=== PATIENT | female | born 1960 | race Caucasian/White ===

== ENCOUNTER → 2019-03-05 12:46 | Outpatient (CLI) | payer OTHER, SELFPAY ==
--- NOTE | 2019-03-05 12:49 | DI.US.S_ITS ---
PROCEDURE: US PELVIC COMPLETE INDICATIONS: LOWER ABDOMINAL PAIN TECHNIQUE: Real-time scanning was performed of the pelvic organs, with image documentation. Additional endovaginal scanning was necessary due to incomplete visualization of the adnexal and endometrial structures by transabdominal scanning. COMPARISON: None. FINDINGS: Transabdominal scanning: Limited scanning through the kidneys shows no hydronephrosis. No pathologic free abdominal or pelvic fluid. Endovaginal scanning: Uterus: Uterus is normal in size at 7.0 x 7.5 x 8.7 cm, retroverted. The endometrium was not well visualized do to a large uterine fibroid, intramural, that measures up to 6.4 x 6.6 x 5.2 cm at the fundus. Ovaries: Not seen bilaterally despite both transabdominal and transvaginal scanning. IMPRESSION: Retroverted uterus which is moderately enlarged by a large single identified fibroid that measures up to 5.2 x 6.6 x 6.4 cm at the fundus. This obscures visualization of the endometrial lining. MR scanning could be utilized to allow visualization of that area of the uterus which is obscured by the large fibroid currently present. No adnexal pathology but the ovaries could not be located despite transabdominal and transvaginal scanning due to to overlying bowel gas and postmenopausal ovarian atrophy. Dictated by: Norman Donis M.D. on 03/05/2019 at 14:21 Approved by: Norman Donis M.D. on 03/05/2019 at 14:23
== END ==
PROVIDERS: Family Provider Family Medicine; PCP Family Medicine; Visit Provider Family Medicine
DX: N94.10 Unspecified dyspareunia (principal); D25.9 Leiomyoma of uterus, unspecified; N85.4 Malposition of uterus
CPT/HCPCS: 76830; 76856

== ENCOUNTER → 2019-09-10 15:03 | Outpatient (CLI) | payer OTHER, SELFPAY ==
--- NOTE | 2019-09-10 15:05 | DI.MG.S_ITS ---
BILATERAL DIGITAL SCREENING MAMMOGRAM 3D/2D WITH CAD: 09/10/2019 CLINICAL: Routine screening. Comparison is made to exams dated: 10/19/2016 mammogram - [facility], 10/03/2013 mammogram, and 06/24/2009 mammogram - [facility]. The tissue of both breasts is heterogeneously dense. This may lower the sensitivity of mammography. Current study was also evaluated with a Computer Aided Detection (CAD) system. No significant masses, calcifications, or other findings are seen in either breast. There has been no significant interval change. IMPRESSION: NEGATIVE There is no mammographic evidence of malignancy. A 1 year screening mammogram is recommended. This exam was interpreted at Station ID: [id number]. NOTE: For mammograms, a report in lay terms will be sent to the patient. Approximately 15% of breast malignancies will not be visualized mammographically. In the management of a palpable breast mass, a negative mammogram must not discourage biopsy of a clinically suspicious lesion. Electronically Signed By: Jordan jones/dannielle:09/10/2019 16:55:14 letter sent: Normal Exam ACR BI-RADS Category 1: Negative 3341F
== END ==
PROVIDERS: PCP Family Medicine; Visit Provider Family Medicine
DX: Z12.31 Encounter for screening mammogram for malignant neoplasm of breast (principal)
CPT/HCPCS: 77063; 77067

== ENCOUNTER → 2020-07-29 10:58 | Outpatient (CLI) | payer OTHER, SELFPAY ==
--- NOTE | 2020-07-29 11:03 | DI.RAD.S_ITS ---
PROCEDURE: XR ABDOMEN MIN 2V INDICATIONS: 1 month hx pain R side ribcage, chest, abdomen TECHNIQUE: 2 views of the abdomen were acquired. COMPARISON: None. FINDINGS: Surgical changes and devices: None. Bowel: No pneumoperitoneum. The bowel gas pattern is normal except for right and transverse colon moderate colonic obstipation. Soft tissues: No masses; visualized solid organ contours appear normal in size. No suspicious abdominal calcifications. Bones: No suspicious bony abnormalities. IMPRESSION: Moderate colonic obstipation involving the right colon and the transverse colon, no intestinal obstruction or perforation found. Dictated by: Norman Donis M.D. on 07/29/2020 at 12:01 Approved by: Norman Donis M.D. on 07/29/2020 at 12:02
--- NOTE | 2020-07-29 11:03 | DI.RAD.S_ITS ---
PROCEDURE: XR CHEST 2V INDICATIONS: 1 month hx pain R side ribcage, chest, abdomen TECHNIQUE: 2 views of the chest were acquired. COMPARISON: [facility], TERRY, XR RIBS RT 2V, 07/29/2020, 10:55. [facility], , MM SCREENING MAMMO BI, 09/10/2019, 15:19. [facility], TERRY, CHEST 1 VIEW, 08/17/2016, 22:05. FINDINGS: Surgical changes and devices: None. Lungs and pleura: Lungs are clear. No pleural effusions or pneumothorax. Mediastinum: Mediastinal contours are normal. Heart size is normal. Bones and chest wall: No suspicious bony abnormalities. Soft tissues appear unremarkable. IMPRESSION: Source of pain is not identified. Normal for age. Dictated by: Norman Donis M.D. on 07/29/2020 at 12:02 Approved by: Norman Donis M.D. on 07/29/2020 at 12:03
--- NOTE | 2020-07-29 11:03 | DI.RAD.S_ITS ---
PROCEDURE: XR RIBS RT 2V INDICATIONS: 1 month hx pain R side ribcage, chest, abdomen TECHNIQUE: 2 views of the right ribs were acquired. COMPARISON: None. FINDINGS: Surgical changes and devices: None. Bones and chest wall: No fractures or dislocations. No suspicious bony lesions. Overlying soft tissues appear unremarkable. Lungs and pleura: The visualized lung appears clear. No pleural effusions or pneumothorax are visible. IMPRESSION: No displaced rib fracture. No pleural effusion or pneumothorax. Dictated by: Wyatt Castellanos M.D. on 07/29/2020 at 11:35 Approved by: Wyatt Castellanos M.D. on 07/29/2020 at 11:36
== END ==
PROVIDERS: PCP Registered Nurse Diabetes Educator; Referring Provider Registered Nurse Diabetes Educator; Visit Provider Registered Nurse Diabetes Educator
DX: R07.81 Pleurodynia (principal); R07.9 Chest pain, unspecified; R10.9 Unspecified abdominal pain; K59.00 Constipation, unspecified
CPT/HCPCS: 71046; 71100; 74019

== ENCOUNTER → 2020-07-30 10:06 | Outpatient (CLI) | payer OTHER, SELFPAY ==
[2020-07-30 12:56] LABS: Add Manual Diff / Slide Review NO; Basophils Absolute Auto 0 /uL (0-100); Basophils Percent Auto 0.7 % (0-2); Eosinophils Absolute Auto 100 /uL (0-450); Eosinophils Percent Auto 2.1 % (2-4); Hematocrit 39.4 % (36-46); Lymphocytes Absolute Auto 1800 /uL (1100-4500); Lymphocytes Percent Auto 34.1 % (25-40); Mean Corpuscular Hemoglobin 28.8 PG (26-34); Mean Corpuscular Volume 87.4 fL (80-100); Monocytes Absolute Auto 300 /uL (0-900); Monocytes Percent Auto 6.5 % (3-14); Neutrophils Absolute Auto 3000 /uL (1500-7000); Neutrophils Percent Auto 56.6 % (50-75); Platelet Count 206 X10^3/uL (150-400); Red Blood Cell Count 4.51 X10^6/uL (4.0-5.2); Red Cell Distribution Width 14.6 % (11.6-14.8); White Blood Cell Count 5.2 X10^3/uL (4.5-11.0)
[2020-07-30 13:16] LABS: Alanine Aminotransferase 20 IU/L (<35); Albumin 4.6 g/dL (3.5-5.0); Albumin Globulin Ratio 1.5 (1.0-2.8); Alkaline Phosphatase 64 U/L (38-126); Aspartate Aminotransferase 36 IU/L (14-36); BUN Creatinine Ratio 26.9 (6-22); Bilirubin Total 0.6 mg/dL (0.2-1.3); Blood Urea Nitrogen 18 mg/dL (7-17); Calcium 9.3 mg/dL (8.4-10.2); Carbon Dioxide 31 mmol/L (22-32); Chloride 103 mmol/L (98-107); Cholesterol 202 mg/dL (140-199); Estimated Glomerular Filt Rate > 60.0 mL/min (>60); Globulin 3.1 g/dL (1.7-4.1); Glucose 77 mg/dL (80-110); HDL Cholesterol 76 mg/dL (40-60); HEMOLYSIS 64 (0-50); LDL Cholesterol Calculated 111 mg/dL (<100); Potassium 4.6 mmol/L (3.4-5.1); Sodium 139 mmol/L (137-145); Total Protein 7.7 g/dL (6.3-8.2); Triglycerides 75 mg/dL (35-150)
[2020-07-30 13:53] LABS: TSH w/ Reflex to FT4 0.96 uIU/mL (0.47-4.68)
== END ==
PROVIDERS: PCP Registered Nurse Diabetes Educator; Referring Provider Registered Nurse Diabetes Educator; Visit Provider Registered Nurse Diabetes Educator
DX: Z00.00 Encounter for general adult medical examination without abnormal findings (principal); R07.81 Pleurodynia; R07.9 Chest pain, unspecified; R10.9 Unspecified abdominal pain
CPT/HCPCS: 36415; 80053; 80061; 84443; 85025

== ENCOUNTER → 2020-09-07 08:31 | Outpatient (CLI) | payer OTHER, SELFPAY ==
--- NOTE | 2020-09-07 08:34 | DI.MG.S_ITS ---
BILATERAL DIGITAL DIAGNOSTIC MAMMOGRAM 3D/2D: 09/07/2020 CLINICAL: Patient is here for evaluation of a right breast mass which has since completely resolved. Patient reports no current symptoms in either breast today. Comparison is made to exams dated: 09/10/2019 mammogram, 10/19/2016 mammogram - [facility], and 10/03/2013 mammogram - [facility]. The tissue of both breasts is heterogeneously dense. This may lower the sensitivity of mammography. No significant masses, calcifications, or other findings are seen in either breast. IMPRESSION: NEGATIVE There is no abnormality seen in the right breast to correspond with the now resolved area of clinical concern/palpable abnormality in the anterior depth, however, clinical followup is recommended for recurrent symptoms or development of any other clinically suspicious findings. There is no mammographic evidence of malignancy. A 1 year screening mammogram is recommended. Findings and recommendations were conveyed to the patient during today's evaluation. This exam was interpreted at Station ID: [id number]. NOTE: For mammograms, a report in lay terms will be sent to the patient. Approximately 15% of breast malignancies will not be visualized mammographically. In the management of a palpable breast mass, a negative mammogram must not discourage biopsy of a clinically suspicious lesion. Electronically Signed By: Mendel Lancaster M.D. aty/:09/07/2020 09:10:34 letter sent: Normal Exam ACR BI-RADS Category 1: Negative 3341F
== END ==
PROVIDERS: PCP Registered Nurse Diabetes Educator; Referring Provider Registered Nurse Diabetes Educator; Visit Provider Registered Nurse Diabetes Educator
DX: R92.2 Inconclusive mammogram (principal); N63.10 Unspecified lump in the right breast, unspecified quadrant
CPT/HCPCS: 77066; G0279

== ENCOUNTER 2021-03-21 03:08 | Emergency (ER) | payer OTHER, SELFPAY ==
--- NOTE | 2021-03-21 03:26 | DI.RAD.S_ITS ---
PROCEDURE: XR CHEST 1V INDICATIONS: palpitations TECHNIQUE: One view of the chest was acquired. COMPARISON: [facility], , CHEST 1 VIEW, 08/17/2016, 22:05. [facility], CR, XR RIBS RT 2V, 07/29/2020, 10:55. [facility], CR, XR CHEST 2V, 07/29/2020, 10:55. FINDINGS: Surgical changes and devices: None. Lungs and pleura: Lungs are clear, yet hyperexpanded. No pleural effusions or pneumothorax. Mediastinum: Mediastinal contours appear normal. Heart size is normal. Bones and chest wall: No suspicious bony lesions. Overlying soft tissues appear unremarkable. IMPRESSION: Hyperexpanded lungs, without an acute cardiopulmonary process identified. Note: No significant discrepancy from the preliminary report. Dictated by: Esdras Sheikh M.D. on 03/21/2021 at 6:59 Approved by: Esdras Sheikh M.D. on 03/21/2021 at 7:00
[2021-03-21] MEDS: METOPROLOL IR 25 MG TABLET PO (03:30)
[2021-03-21 03:33] VITALS: BP 141/70; PULSE 84; RESP 18; TEMP 36.6; O2SAT 99; BMI 22.3
--- NOTE | 2021-03-21 03:36 | ED_ITS ---
HPI - General Adult General Chief complaint: Arrhythmia/Palpitations Stated complaint: heart beating erractically pounding in ears Time Seen by Provider: 03/21/21 03:12 History of Present Illness HPI narrative: 60-year-old woman with no significant medical problems on no prescription medications reports increasing sense of palpitations over the last number of weeks and today has been bothering her much of the day and by the time she laid down to go to bed by 11:00 p.m. this night it was troublesome enough that she was unable to sleep. She does not describe overt pain just an overall discomfort. No nausea, vomiting, diaphoresis, dyspnea, cough. She does note that there has been quite a bit of stress in her life recently. While she and her have been dealing with the estate of her parents with her mother recently dying, her [id number] also and the international relations professor meant of his ashes is going to be happening in the next few days. She does not report that she typically has difficulty with insomnia. She has no abdominal pain, she has noticed no lower extremity edema, she has had no specific headaches no other neurologic complaints. Related Data Previous Rx's Medication Instructions Recorded metoprolol tartrate 12.5 mg PO BID PRN #30 tab 03/21/21 Allergies Allergy/AdvReac Type Severity Reaction Status Date / Time erythromycin base AdvReac Mild VOMITING Verified 10/07/20 11:01 [ERYTHROMYCIN BASE] Review of Systems Review of Systems Narrative: Remainder of complete review of systems is otherwise unremarkable except for that included in the HPI. Patient History Medical History (Updated 03/21/21 @ 04:46 by Rosana Montelongo MD) Upper back pain Surgical History History of oral surgery Status post laparoscopy Family History Brother Age: 65 Sleep apnea Child Age: 24 Multiple food allergies Father Age: 88 Myeloma Bladder cancer Cerebral hemorrhage Osteoporosis Grandfather Stroke Grandmother Pacemaker Mother Age: 82 Congestive heart failure Stroke Social History Smoking Status: Never smoker Smoking Status: Never smoker Exam Narrative Exam Narrative: General: Healthy appearing, in no acute distress. Able to give a complete and coherent history. Well-nourished well-developed HEENT: Moist mucous membranes, normal sclera with reactive pupils, Neck: No JVD, supple Respiratory: Lungs are clear to auscultation, no wheezing no rales no rhonchi. Full and symmetrical air movement Cardiac: Regular rate and rhythm no murmurs no bruits Abdomen: Soft, nontender, good bowel tones, no flank pain Skin: Warm and dry, no rashes Neurologic: Grossly neurologically intact with no obvious asymmetries or abnormalities Extremities: No trauma, well perfused Psych: Cooperative, appropriate insight and affect Initial Vital Signs Initial Vital Signs: Vital Signs Temperature 98 F 03/21/21 03:33 Pulse Rate 84 03/21/21 03:33 Respiratory Rate 18 03/21/21 03:33 Blood Pressure 141/70 H 03/21/21 03:33 Pulse Oximetry 99 03/21/21 03:33 Course Orders Ordered: ED Orders 03/21/21 03:26 XR chest 1V Stat 03/21/21 03:30 Complete Blood Count AUTO DIFF Stat Comprehensive Metabolic Panel Stat D Dimer Stat Magnesium Stat Thyroid Stimulating Hormone Stat Troponin I Stat Discontinued Medications Metoprolol Tartrate (Metoprolol Ir 25 Mg Tablet) 25 mg PO NOW ONE Stop: 03/21/21 03:26 Last Admin: 03/21/21 03:30 Dose: 25 mg Documented by: RACHAEL Vital Signs Vital signs: Vital Signs - 8 hr 03/21/21 03:33 Temperature 98 F Pulse Rate 84 Respiratory Rate 18 Blood Pressure 141/70 H Pulse Oximetry 99 Medical Decision Making Medical Records Medical records reviewed: Yes I reviewed the patient's medical records. Lab Data Lab results reviewed: Yes I reviewed the patient's lab results. Result diagrams: 03/21/21 03:30 03/21/21 03:30 Labs: Lab Results 03/21/21 03/21/21 03/21/21 Range/Units 03:30 03:30 03:30 WBC 5.9 (4.5-11.0) X10^3/uL RBC 4.48 (4.0-5.2) X10^6/uL Hgb 12.9 (12.0-16.0) g/dL Hct 38.7 (36-46) % MCV 86.5 (80-100) fL MCH 28.7 (26-34) PG MCHC 33.2 (30-36) % RDW 14.9 H (11.6-14.8) % Plt Count 207 (150-400) X10^3/uL Neut % (Auto) 72.7 (50-75) % Lymph % (Auto) 21.1 L (25-40) % [place] % (Auto) 4.6 (3-14) % Eos % (Auto) 0.7 L (2-4) % Baso % (Auto) 0.9 (0-2) % Neut # (Auto) 4300 (6594-7029) /uL Lymph # (Auto) 1300 (7094-0971) /uL [place] # (Auto) 300 (0-900) /uL Eos # (Auto) 0 (0-450) /uL Baso # (Auto) 100 (0-100) /uL D-Dimer < 200 (<230) ng/mL Sodium 141 (137-145) mmol/L Potassium 3.8 (3.4-5.1) mmol/L Chloride 108 H (98-107) mmol/L Carbon Dioxide 24 (22-32) mmol/L BUN 23 H (7-17) mg/dL Creatinine 0.65 (0.52-1.04) mg/dL Estimated GFR > 60.0 (>60) mL/min BUN/Creatinine Ratio 35.4 H (6-22) Glucose 131 H (80-110) mg/dL Calcium 9.8 (8.4-10.2) mg/dL Magnesium 2.2 (1.6-2.3) mg/dL Total Bilirubin 0.2 (0.2-1.3) mg/dL AST 27 (14-36) IU/L ALT 19 (<35) IU/L Alkaline Phosphatase 86 (38-126) U/L Troponin I < 0.012 (0.01-0.034) ng/mL Total Protein 7.7 (6.3-8.2) g/dL Albumin 4.6 (3.5-5.0) g/dL Globulin 3.1 (1.7-4.1) g/dL Albumin/Globulin Ratio 1.5 (1.0-2.8) TSH (0.47-4.68) uIU/mL 03/21/21 Range/Units 03:30 WBC (4.5-11.0) X10^3/uL RBC (4.0-5.2) X10^6/uL Hgb (12.0-16.0) g/dL Hct (36-46) % MCV (80-100) fL MCH (26-34) PG MCHC (30-36) % RDW (11.6-14.8) % Plt Count (150-400) X10^3/uL Neut % (Auto) (50-75) % Lymph % (Auto) (25-40) % [place] % (Auto) (3-14) % Eos % (Auto) (2-4) % Baso % (Auto) (0-2) % Neut # (Auto) (2387-4759) /uL Lymph # (Auto) (2007-6637) /uL [place] # (Auto) (0-900) /uL Eos # (Auto) (0-450) /uL Baso # (Auto) (0-100) /uL D-Dimer (<230) ng/mL Sodium (137-145) mmol/L Potassium (3.4-5.1) mmol/L Chloride (98-107) mmol/L Carbon Dioxide (22-32) mmol/L BUN (7-17) mg/dL Creatinine (0.52-1.04) mg/dL Estimated GFR (>60) mL/min BUN/Creatinine Ratio (6-22) Glucose (80-110) mg/dL Calcium (8.4-10.2) mg/dL Magnesium (1.6-2.3) mg/dL Total Bilirubin (0.2-1.3) mg/dL AST (14-36) IU/L ALT (<35) IU/L Alkaline Phosphatase (38-126) U/L Troponin I (0.01-0.034) ng/mL Total Protein (6.3-8.2) g/dL Albumin (3.5-5.0) g/dL Globulin (1.7-4.1) g/dL Albumin/Globulin Ratio (1.0-2.8) TSH 2.30 (0.47-4.68) uIU/mL Imaging Data Chest x-ray: Radiologist's Impression: No acute findings Carlos Cervantes MD ECG Data Attestation: I personally reviewed and interpreted this ECG as follows: Interpretation: Sinus rhythm with a rate at 83 Fairly frequent PACs Normal axis and normal intervals Inferior T-wave changes MDM Narrative Medical decision making narrative: 60-year-old woman presents with increasing palpitations that appear to be PACs. Associated with normal blood work, negative cardiac workup today but quite a bit of stress over the last few weeks. She is given a dose of 25 mg of metoprolol here in the emergency department. Workup returns unremarkable. Normal chest x-ray, EKG, D-dimer suggesting no evidence of pulmonary embolism. No suggestion of acute coronary syndrome, congestive heart failure, renal failure, significant electrolyte abnormalities. The 25 mg of metoprolol has decreased her heart rate and blood pressure. The frequency with which the PACs are noticeable has significantly decreased. She is feeling less of the discomfort that she was associating with the more frequent PACs. Findings are reviewed with patient and her . Questions are answered. She is safe for home discharge Discharge Plan Departure Patient Disposition: Home Clinical Impression: PAC (premature atrial contraction) Instructions: Arrhythmias Activity Restrictions/Additional Instructions: Thank you for coming in today The irregularity that you are feeling is from frequent premature atrial contractions (PACs). This is an early heartbeat and when they were frequent can be quite distressing. They are not related to atrial fibrillation, ventricular fibrillation, supraventricular tachycardias or any heart rhythm that is life- threatening. They are often common when you are more stressed, your missing sleep, your having more caffeine. They tend to be less as your feeling more comfortable and better rested overall. If they are uncomfortable enough that you would like to suppress the sensation and the frequency of the PACs, you can take a dose of metoprolol, 25 mg. This medication decreases your heart rate as well as your blood pressure. You do not need to take it every day, it is for symptomatic relief of frequent PACs. If you do end up taking it every day, please keep track of your heart rate and her blood pressure. I encourage you to follow-up with your primary care physician regarding your palpitations as well as your stress levels. I hope you feel better Prescriptions: New metoprolol tartrate 25 mg tablet 12.5 mg PO BID PRN (Reason: palpitations) Qty: 30 RF: 0 Referrals: Baljinder Barclay ARNP [Primary Care Provider] -
[2021-03-21 03:39] LABS: Add Manual Diff / Slide Review NO; Basophils Absolute Auto 100 /uL (0-100); Basophils Percent Auto 0.9 % (0-2); Eosinophils Absolute Auto 0 /uL (0-450); Eosinophils Percent Auto 0.7 % (2-4); Hematocrit 38.7 % (36-46); Hemoglobin 12.9 g/dL (12.0-16.0); Lymphocytes Absolute Auto 1300 /uL (1100-4500); Lymphocytes Percent Auto 21.1 % (25-40); Mean Corpuscular HGB Conc 33.2 % (30-36); Mean Corpuscular Hemoglobin 28.7 PG (26-34); Mean Corpuscular Volume 86.5 fL (80-100); Monocytes Absolute Auto 300 /uL (0-900); Monocytes Percent Auto 4.6 % (3-14); Neutrophils Absolute Auto 4300 /uL (1500-7000); Neutrophils Percent Auto 72.7 % (50-75); Platelet Count 207 X10^3/uL (150-400); Red Blood Cell Count 4.48 X10^6/uL (4.0-5.2); Red Cell Distribution Width 14.9 % (11.6-14.8); White Blood Cell Count 5.9 X10^3/uL (4.5-11.0)
[2021-03-21 03:49] LABS: D Dimer < 200 ng/mL (<230)
[2021-03-21 03:52] LABS: Alanine Aminotransferase 19 IU/L (<35); Albumin 4.6 g/dL (3.5-5.0); Albumin Globulin Ratio 1.5 (1.0-2.8); Alkaline Phosphatase 86 U/L (38-126); Aspartate Aminotransferase 27 IU/L (14-36); BUN Creatinine Ratio 35.4 (6-22); Bilirubin Total 0.2 mg/dL (0.2-1.3); Blood Urea Nitrogen 23 mg/dL (7-17); Calcium 9.8 mg/dL (8.4-10.2); Carbon Dioxide 24 mmol/L (22-32); Chloride 108 mmol/L (98-107); Estimated Glomerular Filt Rate > 60.0 mL/min (>60); Globulin 3.1 g/dL (1.7-4.1); Glucose 131 mg/dL (80-110); HEMOLYSIS < 15 (0-50); Magnesium 2.2 mg/dL (1.6-2.3); Potassium 3.8 mmol/L (3.4-5.1); Sodium 141 mmol/L (137-145); Total Protein 7.7 g/dL (6.3-8.2)
[2021-03-21 04:05] LABS: Troponin I < 0.012 ng/mL (0.01-0.034)
[2021-03-21 04:59] VITALS: BP 106/57; PULSE 56; RESP 16; TEMP 36.1; O2SAT 97
== END 2021-03-21 05:01 | disposition home or self-care (01) ==
PROVIDERS: Emergency Provider Emergency Medicine; PCP Registered Nurse Diabetes Educator
DX: I49.1 Atrial premature depolarization (principal)
CPT/HCPCS: 36415; 71045; 80053; 83735; 84443; 84484; 85025; 85379; 93005; 99284

== ENCOUNTER 2021-07-12 11:03 | Emergency (ER) | payer OTHER, SELFPAY ==
[2021-07-12 11:11] VITALS: BP 151/68; PULSE 72; RESP 14; TEMP 36.7; O2SAT 99
--- NOTE | 2021-07-12 11:51 | ED_ITS ---
HPI - General Adult General Chief complaint: Eye Problems Stated complaint: torn retina Time Seen by Provider: 07/12/21 11:36 Source: patient Mode of arrival: Ambulatory Limitations: no limitations History of Present Illness HPI narrative: Patient is a 61-year-old female. Does wear corrective lenses but no prior ocular surgeries. States that on Monday she was out in the yard working. States she was moving wood that was somewhat heavy. While she was working out in the yard she has noticed that she was having which she describes as ?floaters ?and ?flashes ?she states that these do seem to be intermittent. S he states that it appears to be in the left side of her visual field in in her left eye. She thinks it is isolated to only her left eye. Never had this in the past. They have not been worsening. They are not consistent. She states that she does feel somewhat different in her head but not a specific headache. Related Data Previous Rx's Medication Instructions Recorded metoprolol tartrate 25 mg tablet 12.5 mg PO BID PRN #30 tab 03/21/21 Allergies Allergy/AdvReac Type Severity Reaction Status Date / Time erythromycin base AdvReac Mild VOMITING Verified 10/07/20 11:01 [ERYTHROMYCIN BASE] Review of Systems Constitutional Constitutional: Denies fever(s) and Denies headache(s) Eyes Eyes: Reports as per HPI ENT Ears, Nose, Mouth, and Throat: Denies headache(s) Cardiovascular Cardiovascular: Denies chest pain and Denies dyspnea Respiratory Respiratory: Denies dyspnea Gastrointestinal Gastrointestinal: Reports system reviewed and no additional complaints, except as documented Musculoskeletal Musculoskeletal: Reports system reviewed and no additional complaints, except as documented Integumentary/Breasts Skin/Breast: Reports system reviewed and no additional complaints, except as documented Neurologic Neurologic: Denies headache(s) Hematologic/Lymphatic On Anticoagulants: No Allergic/Immunologic Allergic/Immunologic: Reports system reviewed and no additional complaints, except as documented Patient History Medical History (Updated 07/12/21 @ 12:39 by Dean Felton DO) Upper back pain Surgical History History of oral surgery Status post laparoscopy Family History Brother Age: 65 Sleep apnea Child Age: 24 Multiple food allergies Father Age: 88 Myeloma Bladder cancer Cerebral hemorrhage Osteoporosis Grandfather Stroke Grandmother Pacemaker Mother Age: 82 Congestive heart failure Stroke Social History Smoking Status: Never smoker Smoking Status: Never smoker alcohol intake frequency: a few times a week Alcohol type: wine Substance Use Type: does not use Exam Initial Vital Signs Initial Vital Signs: Vital Signs Temperature 98.1 F 07/12/21 11:11 Pulse Rate 72 07/12/21 11:11 Respiratory Rate 14 07/12/21 11:11 Blood Pressure 151/68 H 07/12/21 11:11 Pulse Oximetry 99 07/12/21 11:11 HENMT Head: normal to inspection and normocephalic Eyes General: appearance normal, both eyes and all related structures Periorbital: periorbital findings normal Eyelids: eyelids normal Pupils: PERRL EOM: EOM intact bilaterally Resp Effort & Inspection: normal respiratory effort Auscultation: clear to auscultation bilaterally Cardio Rate: regular rate Rhythm: regular rhythm Skin General: no rashes or lesions noted Neuro General: patient alert, patient awake and moves all extremities Extrem General: normal to inspection and capillary refill normal Psych Appearance: grossly normal Course Vital Signs Vital signs: Vital Signs - 8 hr 07/12/21 11:11 Temperature 98.1 F Pulse Rate 72 Respiratory Rate 14 Blood Pressure 151/68 H Pulse Oximetry 99 Medical Decision Making MDM Narrative Medical decision making narrative: External exam of her eye is unremarkable. Visual acuity was noted. I did discuss the case with Dr. mccallum on-call with Ophthalmology. This is most likely a vitreous detachment however we will send the patient over to the ophthalmology clinic to be further evaluated. I did discuss this with the patient. She expressed understanding and agreement. Discharge Plan Departure Patient Disposition: Home Clinical Impression: Floaters in visual field Instructions: DI for Eye Floaters Activity Restrictions/Additional Instructions: I did discuss the case with Dr. mccallum at the ophthalmology clinic here in the hospital. They will be able to see you this afternoon so upon discharge from the emergency department over to the ophthalmology clinic for further evaluation. Prescriptions: No Action metoprolol tartrate 25 mg tablet 12.5 mg PO BID PRN (Reason: palpitations) Qty: 30 RF: 0 Referrals: Baljinder Barclay ARNP [Primary Care Provider] -
[2021-07-12 12:44] VITALS: BP 117/57
== END 2021-07-12 12:54 | disposition home or self-care (01) ==
PROVIDERS: Emergency Provider Emergency Medicine; PCP Registered Nurse Diabetes Educator
DX: H43.392 Other vitreous opacities, left eye (principal)
CPT/HCPCS: 99281; 99282

== ENCOUNTER 2022-03-29 11:58 | Emergency (ER) | payer OTHER, SELFPAY ==
[2022-03-29] VITALS (7 sets, daily range): BP systolic 109–124; BP diastolic 55–60; PULSE 62–88; RESP 10–18; TEMP 36.4; O2SAT 97–100; BMI 22.8
[2022-03-29 12:43] LABS: COVID19 -Nasal RAPID Negative (Negative)
--- NOTE | 2022-03-29 13:07 | ED.BACK ---
HPI - Back Pain/Injury General Chief Complaint: Back Pain/Injury Stated Complaint: Back/chest pain right side- referred by Nurse Time Seen by Provider: 03/29/22 12:20 Source: family History of Present Illness HPI Narrative: Patient here for right-sided reproducible chest pain/scapular pain that started 2 weeks ago. She noticed the 1st episode when she was getting into bed. Since then has increased with deep breath and movement of the arm. A radiates from the right scapula to the right chest. No rash. No exertional chest pain. No fever chills. No history of blood clots in legs or lungs. Denies any injuries. She did get relief with ibuprofen to help sleep on 1 episode. Has not taken it regularly since then Related Data Previous Rx's Medication Instructions Recorded metoprolol tartrate 25 mg tablet 12.5 mg PO BID PRN palpitations 03/21/21 #30 tabs Allergies Allergy/AdvReac Type Severity Reaction Status Date / Time erythromycin base AdvReac Mild VOMITING Verified 10/07/20 11:01 [ERYTHROMYCIN BASE] Review of Systems Review of Systems Narrative: GENERAL: Denies chills, fatigue, malaise, fever, sweats. HEENT: Denies sinus pain, ear pain, sore throat RESPIRATORY: Denies dyspnea, cough CARDIOVASCULAR: Denies chest pain, palpitations GASTROINTESTINAL: Denies nausea, vomiting, abdominal pain : Denies dysuria, frequency, hematuria MUSCULOSKELETAL: Positive for muscle or bony pain SKIN: Denies rash, skin lesions NEUROLOGIC: Denies weakness, numbness ROS Unobtainable: All systems reviewed & are unremarkable except as noted in HPI and below Patient History Medical History (Updated 04/13/22 @ 00:01 by ) Upper back pain Surgical History History of oral surgery Status post laparoscopy Family History Brother Age: 66 Sleep apnea Child Age: 25 Multiple food allergies Father Age: 89 Myeloma Bladder cancer Cerebral hemorrhage Osteoporosis Grandfather Stroke Grandmother Pacemaker Mother Age: 83 Congestive heart failure Stroke Social History Smoking Status: Never smoker Smoking Status: Never smoker alcohol intake frequency: a few times a week Alcohol type: wine Substance Use Type: does not use Exam Narrative Exam Narrative: GENERAL: in no distress, not toxic not dyspneic HEAD: Normocephalic. EYES: Pupils equal round No scleral icterus. ENT: Mucous membranes moist. NECK: Trachea midline. CARDIOVASCULAR: Regular rate and rhythm without murmurs RESPIRATORY: Clear to auscultation. Breath sounds equal bilaterally. No wheezes, rales, or rhonchi. GASTROINTESTINAL: Abdomen soft, non-tender EXTREMITIES: No gross deformities. BACK: No flank tenderness. Mild right infrascapular tenderness. No rash. Increased pain with movement of the right arm ringing hand above the head. Also with range of motion of the neck/head does intensify pain at the right scapula. NEURO: AOx4. SKIN: Warm and dry PSYCH: Not anxious, is cooperative Initial Vital Signs Initial Vital Signs: Vital Signs Pulse Rate 88 03/29/22 12:11 Pulse Oximetry 99 03/29/22 12:11 Course Course Course Narrative: No new issues during course of stay Orders Ordered: Discontinued Medications Sodium Chloride (Normal Saline 0.9%) 500 mls @ 1,000 mls/hr IV BOLUS ONE Stop: 03/29/22 13:37 Last Infusion: 03/29/22 15:14 Dose: 0 mls/hr Documented By: Admin: 03/29/22 13:15 Dose: 1,000 mls/hr Documented By: MARITZA Ketorolac Tromethamine (Ketorolac 30 Mg/Ml Vial) 15 mg IV NOW ONE Stop: 03/29/22 13:09 Last Admin: 03/29/22 13:16 Dose: 15 mg Documented By: MARITZA Reevaluation(s) Reevaluation #1: Reviewed results with patient and . At this time they are reassuring. Symptoms likely costochondritis/pinched nerve in thoracic spine/muscle spasm. At this time they are comfortable with discharge home and follow up with family doctor for possible physical therapy and MRI if no improvement. She does not want prescription for any muscle relaxers. She is very sensitive to medications and it puts her to sleep. She states that ibuprofen and Aleve will work just fine at home. Time: 14:16 Vital Signs Vital signs: Vital Signs - 8 hr 03/29/22 12:11 03/29/22 12:12 03/29/22 12:30 Temperature 97.6 F Pulse Rate 88 77 70 Respiratory Rate 18 Blood Pressure 124/58 L 109/55 L Pulse Oximetry 99 100 99 MDM - Back Pain/Injury Differential Diagnosis Differential diagnosis: Likely other (Shingles/thoracic bulged disc/muscular strain/muscular spasm/PE/pneumonia/costochondritis) Lab Data Result diagrams: 03/29/22 13:15 03/29/22 13:15 Labs: Lab Results 03/29/22 03/29/22 03/29/22 Range/Units 12:18 13:15 13:15 WBC 7.2 (4.5-11.0) X10^3/uL RBC 4.36 (4.0-5.2) X10^6/uL Hgb 12.7 (12.0-16.0) g/dL Hct 37.6 (36-46) % MCV 86.1 (80-100) fL MCH 29.1 (26-34) PG MCHC 33.7 (30-36) % RDW 14.1 (11.6-14.8) % Plt Count 218 (150-400) X10^3/uL Neut % (Auto) 66.4 (50-75) % Lymph % (Auto) 25.6 (25-40) % [place] % (Auto) 6.5 (3-14) % Eos % (Auto) 1.1 L (2-4) % Baso % (Auto) 0.4 (0-2) % Neut # (Auto) 4800 (2140-7481) /uL Lymph # (Auto) 1800 (0177-9226) /uL [place] # (Auto) 500 (0-900) /uL Eos # (Auto) 100 (0-450) /uL Baso # (Auto) 0 (0-100) /uL Sodium 142 (137-145) mmol/L Potassium 3.9 (3.4-5.1) mmol/L Chloride 106 (98-107) mmol/L Carbon Dioxide 31 (22-32) mmol/L BUN 19 H (7-17) mg/dL Creatinine 0.77 (0.52-1.04) mg/dL Estimated GFR > 60 (>60) mL/min BUN/Creatinine Ratio 24.7 H (6-22) Glucose 92 (80-110) mg/dL Calcium 9.3 (8.4-10.2) mg/dL Total Bilirubin 0.2 (0.2-1.3) mg/dL AST 27 (14-36) IU/L ALT 18 (<35) IU/L Alkaline Phosphatase 67 (38-126) U/L Total Creatine Kinase 54 (30-135) U/L CK-MB (CK-2) TNP CK-MB (CK-2) Rel Index TNP Troponin I < 0.012 (0.01-0.034) ng/mL Total Protein 7.8 (6.3-8.2) g/dL Albumin 4.5 (3.5-5.0) g/dL Globulin 3.3 (1.7-4.1) g/dL Albumin/Globulin Ratio 1.4 (1.0-2.8) SARS-CoV-2 (PCR) Negative (Negative) Imaging Data CT scan - chest: Radiologist's Impression: [address] [address] [address] Scan Report Signed Patient: Jenae Shah MR#: [id number] : 1960 Acct:[id number] Age/Sex: 61 / F Date of Service: 03/29/22 Loc: ED Accession Number: [id number] ?? Procedure: CT angio chest PE protocol Ordering Provider: Noble Azevedo MD PROCEDURE:? CT ANGIO CHEST PE PROTOCOL ? INDICATIONS:? Right side pain ? TECHNIQUE:? After the administration of intravenous contrast, 2 mm thick sections acquired from the pulmonary apices to the posterior costophrenic angles.? 3-dimensional maximum intensity projection (MIP) coronal and sagittal reformats were then acquired through the thorax.? For radiation dose reduction, the following was used:? automated exposure control, adjustment of mA and/or kV according to patient size.? ? COMPARISON:? None. ? FINDINGS:? Image quality:? Excellent.? ? Pulmonary arteries:? Pulmonary arteries are normal in size, and demonstrate no intraluminal filling defects to suggest central pulmonary embolism.? ? Lungs and pleura:? Lungs are clear.? No pleural effusions or pneumothorax.? Central and peripheral airways are patent.? ? Mediastinum:? Heart size is normal, without pericardial effusion.? No mediastinal or hilar adenopathy.? Thoracic aorta is normal in caliber and enhancement.? Esophagus is normal in caliber, without hiatal hernia.? ? Bones and chest wall:? No suspicious bony lesions.? Ribs and thoracic spine appear intact throughout.? Thyroid gland is unremarkable.? No axillary or supraclavicular adenopathy.? ? Abdomen:? Visualized upper abdominal solid organs appear normal in the early arterial phase of enhancement.? ? IMPRESSION:? No acute pulmonary embolus.? No acute pulmonary findings. ? ? Dictated by: Micaela Haq M.D. on 03/29/2022 at 13:44 ? ? Approved by: Micaela Haq M.D. on 03/29/2022 at 13:48 ? ECG Data Interpretation: Normal sinus rhythm rate [address] elevation or depression. MDM Narrative Medical decision making narrative: Appropriate for discharge home. Exam and laboratory studies and imaging are reassuring. Differential diagnosis includes but not limited to costochondritis/pleurisy/thoracic spine pinched nerve. Return precautions reviewed with patient and . They desire discharge home. They will follow up with family doctor for referral for physical therapy and possible MRI. Not toxic in discharge Discharge Plan Departure Patient Disposition: Home Clinical Impression: Thoracic back pain Instructions: Thoracic Back Pain Activity Restrictions/Additional Instructions: May continue [id number] ibuprofen or Aleve for pain. Be sure to see family doctor within a week for re-evaluation and for referral for physical therapy to help for your pain. You may need outpatient MRI of your spine if no improvement. Return if worse if any questions or concerns. Today's results and exams and imaging have been reassuring. Prescriptions: No Action metoprolol tartrate 25 mg tablet 12.5 mg PO BID PRN (Reason: palpitations) Qty: 30 0RF Referrals: Baljinder Barclay ARNP [Primary Care Provider] -
--- NOTE | 2022-03-29 13:08 | DI.CT.S_ITS ---
PROCEDURE: CT ANGIO CHEST PE PROTOCOL INDICATIONS: Right side pain TECHNIQUE: After the administration of intravenous contrast, 2 mm thick sections acquired from the pulmonary apices to the posterior costophrenic angles. 3-dimensional maximum intensity projection (MIP) coronal and sagittal reformats were then acquired through the thorax. For radiation dose reduction, the following was used: automated exposure control, adjustment of mA and/or kV according to patient size. COMPARISON: None. FINDINGS: Image quality: Excellent. Pulmonary arteries: Pulmonary arteries are normal in size, and demonstrate no intraluminal filling defects to suggest central pulmonary embolism. Lungs and pleura: Lungs are clear. No pleural effusions or pneumothorax. Central and peripheral airways are patent. Mediastinum: Heart size is normal, without pericardial effusion. No mediastinal or hilar adenopathy. Thoracic aorta is normal in caliber and enhancement. Esophagus is normal in caliber, without hiatal hernia. Bones and chest wall: No suspicious bony lesions. Ribs and thoracic spine appear intact throughout. Thyroid gland is unremarkable. No axillary or supraclavicular adenopathy. Abdomen: Visualized upper abdominal solid organs appear normal in the early arterial phase of enhancement. IMPRESSION: No acute pulmonary embolus. No acute pulmonary findings. Dictated by: Micaela Haq M.D. on 03/29/2022 at 13:44 Approved by: Micaela Haq M.D. on 03/29/2022 at 13:48
[2022-03-29] MEDS: SODIUM CHLORIDE 0.9% 500 ML 1000 ML IV (13:15)
[2022-03-29] MEDS: KETOROLAC 30 MG/ML VIAL 15 MG IV (13:16)
[2022-03-29 13:31] LABS: Add Manual Diff / Slide Review NO; Basophils Absolute Auto 0 /uL (0-100); Basophils Percent Auto 0.4 % (0-2); Eosinophils Absolute Auto 100 /uL (0-450); Eosinophils Percent Auto 1.1 % (2-4); Hematocrit 37.6 % (36-46); Hemoglobin 12.7 g/dL (12.0-16.0); Lymphocytes Absolute Auto 1800 /uL (1100-4500); Lymphocytes Percent Auto 25.6 % (25-40); Mean Corpuscular HGB Conc 33.7 % (30-36); Mean Corpuscular Hemoglobin 29.1 PG (26-34); Mean Corpuscular Volume 86.1 fL (80-100); Monocytes Absolute Auto 500 /uL (0-900); Monocytes Percent Auto 6.5 % (3-14); Neutrophils Absolute Auto 4800 /uL (1500-7000); Neutrophils Percent Auto 66.4 % (50-75); Platelet Count 218 X10^3/uL (150-400); Red Blood Cell Count 4.36 X10^6/uL (4.0-5.2); Red Cell Distribution Width 14.1 % (11.6-14.8); White Blood Cell Count 7.2 X10^3/uL (4.5-11.0)
[2022-03-29 13:44] LABS: Alanine Aminotransferase 18 IU/L (<35); Albumin 4.5 g/dL (3.5-5.0); Albumin Globulin Ratio 1.4 (1.0-2.8); Alkaline Phosphatase 67 U/L (38-126); Aspartate Aminotransferase 27 IU/L (14-36); BUN Creatinine Ratio 24.7 (6-22); Bilirubin Total 0.2 mg/dL (0.2-1.3); Blood Urea Nitrogen 19 mg/dL (7-17); Calcium 9.3 mg/dL (8.4-10.2); Carbon Dioxide 31 mmol/L (22-32); Chloride 106 mmol/L (98-107); Creatine Kinase 54 U/L (30-135); Estimated Glomerular Filt Rate > 60 mL/min (>60); Globulin 3.3 g/dL (1.7-4.1); Glucose 92 mg/dL (80-110); HEMOLYSIS < 15 (0-50); Potassium 3.9 mmol/L (3.4-5.1); Sodium 142 mmol/L (137-145); Total Protein 7.8 g/dL (6.3-8.2)
[2022-03-29 13:56] LABS: Troponin I < 0.012 ng/mL (0.01-0.034)
== END 2022-03-29 14:35 | disposition home or self-care (01) ==
PROVIDERS: Emergency Provider Emergency Medicine; PCP Registered Nurse Diabetes Educator
DX: M54.6 Pain in thoracic spine (principal); R07.9 Chest pain, unspecified; Z20.822 Contact with and (suspected) exposure to COVID-19
CPT/HCPCS: 36415; 71275; 80053; 82550; 84484; 85025; 87635; 93005; 93010; 96374; 99284; C9803; J1885; Q9967

== ENCOUNTER → 2022-07-02 14:27 | Outpatient (CLI) | payer OTHER, SELFPAY ==
--- NOTE | 2022-07-02 14:29 | DI.RAD.S_ITS ---
PROCEDURE: XR FOOT LT MIN 3V INDICATIONS: left 2nd toe pain TECHNIQUE: 3 views of the foot were acquired. COMPARISON: None. FINDINGS: Bones: Osseous structures are demineralized. No fractures or dislocations. No suspicious bony lesions. Soft tissues: No tibiotalar joint effusion. Achilles tendon appears normal. IMPRESSION: No acute osseous abnormality. Dictated by: Heriberto Jones D.O. on 07/02/2022 at 14:31 Approved by: Heriberto Jones D.O. on 07/02/2022 at 14:34
== END ==
PROVIDERS: PCP Registered Nurse Diabetes Educator; Referring Provider Physician Assistant; Visit Provider Physician Assistant
DX: M79.672 Pain in left foot (principal)
CPT/HCPCS: 73630

== ENCOUNTER → 2022-07-28 10:27 | Outpatient (CLI) | payer OTHER, SELFPAY ==
[2022-07-28 12:29] LABS: Add Manual Diff / Slide Review NO; Basophils Absolute Auto 0 /uL (0-100); Basophils Percent Auto 0.6 % (0-2); Eosinophils Absolute Auto 200 /uL (0-450); Eosinophils Percent Auto 3.9 % (2-4); Hematocrit 36.4 % (36-46); Hemoglobin 12.1 g/dL (12.0-16.0); Lymphocytes Absolute Auto 1600 /uL (1100-4500); Lymphocytes Percent Auto 30.3 % (25-40); Mean Corpuscular HGB Conc 33.3 % (30-36); Mean Corpuscular Hemoglobin 27.9 PG (26-34); Mean Corpuscular Volume 83.8 fL (80-100); Monocytes Absolute Auto 400 /uL (0-900); Monocytes Percent Auto 6.9 % (3-14); Neutrophils Absolute Auto 3100 /uL (1500-7000); Neutrophils Percent Auto 58.3 % (50-75); Platelet Count 292 X10^3/uL (150-400); Red Blood Cell Count 4.34 X10^6/uL (4.0-5.2); Red Cell Distribution Width 14.6 % (11.6-14.8); White Blood Cell Count 5.4 X10^3/uL (4.5-11.0)
[2022-07-28 13:28] LABS: BUN Creatinine Ratio 23.5 (6-22); Blood Urea Nitrogen 19 mg/dL (7-17); C-Reactive Protein Quant < 0.5 mg/dL (<1.0); Carbon Dioxide 32 mmol/L (22-32); Chloride 103 mmol/L (98-107); Estimated Glomerular Filt Rate > 60 mL/min (>60); Glucose 83 mg/dL (80-110); HEMOLYSIS < 15 (0-50); Potassium 4.2 mmol/L (3.4-5.1); Sodium 141 mmol/L (137-145); Uric Acid 3.8 mg/dL (2.5-6.2)
[2022-07-28 13:32] LABS: Rheumatoid Factor < 8.6 IU/mL (<12.0)
[2022-07-30 13:36] LABS: ANA Screen, IFA Negative (.)
[2022-08-02 22:57] LABS: CCP Antibodies IgG/IgA 4 units (0-19)
== END ==
PROVIDERS: PCP Registered Nurse Diabetes Educator; Referring Provider Registered Nurse Diabetes Educator; Visit Provider Registered Nurse Diabetes Educator
DX: M79.671 Pain in right foot (principal); M79.672 Pain in left foot
CPT/HCPCS: 36415; 80048; 84550; 85025; 86038; 86140; 86200; 86430

== ENCOUNTER → 2022-08-05 12:46 | Outpatient (CLI) | payer OTHER, SELFPAY ==
--- NOTE | 2022-08-05 12:48 | DI.MRI.S_ITS ---
PROCEDURE: MRFOOT LT WO CON INDICATIONS: eval pain, swelling, redness, warmth L 2nd-4th toes,forefoot TECHNIQUE: Noncontrast sagittal T1 spin echo and T2 fast spin echo with fat saturation, long-axis T1 spin echo and T2 fast spin echo with fat saturation, short-axis T1 spin echo and T2 fast spin echo with fat saturation through the forefoot. COMPARISON: [facility], CR, XR FOOT LT MIN 3V, 07/02/2022, 14:50. FINDINGS: Image quality: Excellent. Bones and joints: Osseous edema is seen throughout the 2nd distal, middle, and proximal phalanges is with mildly decreased T1-weighted signal intensity. Less pronounced osseous edema is seen within the 3rd phalanges as well as the 2nd through 4th metatarsal heads without T1 signal loss, which is less specific and may be reactive. Mild to moderate degenerative changes are seen in the 1st metatarsophalangeal joint and metatarsal sesamoid articulations with mild edema in the sesamoids. Soft tissues: Prominent subcutaneous soft tissue edema is seen throughout the 2nd toe. Mild soft tissue edema is also seen in the 3rd toe. No definite focal skin ulceration is seen. Edema is also seen within the intrinsic foot musculature and at the dorsum of the foot. Chronic pressure related changes are seen in the subcutaneous tissues plantar to the 1st and 5th metatarsal heads. Visualized flexor and extensor tendons appear intact, without tenosynovitis. The principal Lisfranc ligament appears intact. Sagittal images demonstrate no evidence for plantar plate tears. IMPRESSION: 1. Osseous edema within the 2nd proximal, middle, and distal phalanges with decreased T1-weighted signal may represent osteomyelitis in the setting of soft tissue infection. Soft tissue edema is seen throughout the 2nd toe, but no focal skin ulceration is seen. In the absence of infection, findings are less specific and may be related to prior trauma or nonspecific inflammatory process. 2. Mild soft tissue and osseous edema within the 3rd toe as well as the 2nd through 4th metatarsal heads, which is less specific and may be reactive. 3. Soft tissue edema within the intrinsic foot muscles may be reactive or secondary to myositis. No ligament or tendon injury is seen. 4. 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 Dictated by: Wyatt Castellanos M.D. on 08/05/2022 at 12:46 Approved by: Wyatt Castellanos M.D. on 08/05/2022 at 12:56
== END ==
PROVIDERS: PCP Registered Nurse Diabetes Educator; Referring Provider Registered Nurse Diabetes Educator; Visit Provider Registered Nurse Diabetes Educator
DX: M79.672 Pain in left foot (principal); M79.89 Other specified soft tissue disorders; M19.072 Primary osteoarthritis, left ankle and foot; R60.0 Localized edema
CPT/HCPCS: 73718

== ENCOUNTER → 2022-11-14 12:00 | Outpatient (CLI) | payer OTHER, SELFPAY ==
--- NOTE | 2022-11-14 | DI.MG.S_ITS ---
BILATERAL DIGITAL SCREENING MAMMOGRAM 3D/2D WITH CAD: 11/14/2022 CLINICAL: Routine screening. Family history of breast cancer. Comparison is made to exams dated: 09/07/2020 mammogram, 09/10/2019 mammogram, and 10/19/2016 mammogram - [facility]. There are scattered areas of fibroglandular density in both breasts (category b / 25%-50% glandular tissue). Current study was also evaluated with a Computer Aided Detection (CAD) system. No significant masses, calcifications, or other findings are seen in either breast. There has been no significant interval change. IMPRESSION: NEGATIVE There is no mammographic evidence of malignancy. A 1 year screening mammogram is recommended. Based on the Tyrer Cuzick model (a risk assessment model) the patient's lifetime risk is 7.3% and her 10 year risk is 3.4%. According to the ACR, ACS, and NCCN guidelines, an annual breast MRI exam along with mammogram is recommended if the patient's lifetime risk is 20% or greater. This exam was interpreted at Station ID: [id number]. NOTE: For mammograms, a report in lay terms will be sent to the patient. Approximately 15% of breast malignancies will not be visualized mammographically. In the management of a palpable breast mass, a negative mammogram must not discourage biopsy of a clinically suspicious lesion. Electronically Signed By: Cesar walter/dannielle:11/14/2022 13:12:18 letter sent: Normal Exam ACR BI-RADS Category 1: Negative [id number]
== END ==
PROVIDERS: PCP Registered Nurse Diabetes Educator; Referring Provider Registered Nurse Diabetes Educator; Visit Provider Registered Nurse Diabetes Educator
DX: Z12.31 Encounter for screening mammogram for malignant neoplasm of breast (principal); Z80.3 Family history of malignant neoplasm of breast
CPT/HCPCS: 77063; 77067

== ENCOUNTER → 2022-12-15 17:01 | Outpatient (CLI) | payer OTHER, SELFPAY ==
--- NOTE | 2022-12-15 17:02 | DI.MRI.S_ITS ---
PROCEDURE: MRFOOT LT WO CON INDICATIONS: Pain in left foot TECHNIQUE: Noncontrast sagittal T1 spin echo and T2 fast spin echo with fat saturation, long-axis T1 spin echo and T2 fast spin echo with fat saturation, short-axis T1 spin echo and T2 fast spin echo with fat saturation through the forefoot. COMPARISON: [facility], MR, MR FOOT LT WO CON, 08/05/2022, 13:00. FINDINGS: Image quality: Excellent. Bones and joints: Compared to previous study, there is worsening of marrow edema in the forefoot now involving distal 1st metatarsal shaft and head, adjacent 1st proximal phalangeal base, 2nd mid to distal metatarsal shaft, 2nd proximal, middle and distal phalanges, distal 3rd metatarsal shaft, 3rd proximal and middle phalanges, 4th metatarsal neck and head, 4th proximal and middle phalanges. Marrow edema is also noted involving medial and lateral sesamoids of 1st metatarsal head. No definite discrete fracture line or cortical disruption is seen. No suspicious intraosseous lesion. [id number]-[id number] midfoot and forefoot joint osteoarthritic changes are again seen most notably at 1st MTP joint and 1st interphalangeal joint. Soft tissues: There is mild soft tissue swelling in midfoot and forefoot particularly adjacent to 2nd through 4th MTP joints and distal shaft of 2nd through 4th metatarsal bones. No discrete drainable fluid collection. No gross skin ulceration is identified. Mild edema in visualized plantar foot muscles adjacent to 2nd through 4th metatarsal shafts are seen without discrete intramuscular mass or fluid collection. Extensor and flexor tendons are grossly intact. The Lisfranc ligament and joint is intact. IMPRESSION: 1. Interval worsening of marrow edema in midfoot and forefoot as described above without discrete fracture line or cortical disruption. No periosteal reaction. Finding could represent osteomyelitis in the presence of soft tissue infection, suggest clinical correlation. No discrete skin ulceration is identified in this case. Finding could also represent contusion versus stress related changes. 2. Midfoot and forefoot soft tissue edema and mild swelling. No gross skin ulceration or discrete drainable fluid collection is noted. 3. Mild edema within plantar foot muscles adjacent to 2nd through 4th metatarsal bones suggestive of reactive changes versus myositis. 4. Forefoot tendons and ligaments are grossly intact. Dictated by: Phuc Barahona M.D. on 12/16/2022 at 10:38 Approved by: Phuc Barahona M.D. on 12/16/2022 at 11:11
== END ==
PROVIDERS: PCP Registered Nurse Diabetes Educator; Referring Provider Internal Medicine Rheumatology; Visit Provider Internal Medicine Rheumatology
DX: M79.672 Pain in left foot (principal); M06.4 Inflammatory polyarthropathy; R60.0 Localized edema
CPT/HCPCS: 73718

== ENCOUNTER → 2023-01-03 11:58 | Outpatient (CLI) | payer OTHER, SELFPAY ==
[2023-01-06 07:03] LABS: Almond IgE <0.10 kU/L (Class 0); Cashew Nut IgE <0.10 kU/L (Class 0); Clam IgE <0.10 kU/L (Class 0); Codfish Allergy IgE < 0.10 kU/L (Class 0); Crab IgE <0.10 kU/L (Class 0); Egg White IgE <0.10 kU/L (Class 0); Hazelnut IgE <0.10 kU/L (Class 0); Lobster IgE <0.10 kU/L (Class 0); Milk IgE <0.10 kU/L (Class 0); Oyster IgE <0.10 kU/L (Class 0); Peanut IgE <0.10 kU/L (Class 0); Salmon Allergy IgE < 0.10 kU/L (Class 0); Scallop Allergy IgE < 0.10 kU/L (Class 0); Sesame seed Allergy IgE < 0.10 kU/L (Class 0); Shrimp IgE <0.10 kU/L (Class 0); Soybean IgE <0.10 kU/L (Class 0); Tuna Allergy IgE < 0.10 kU/L (Class 0); Walnut IgE <0.10 kU/L (Class 0); Wheat Allergy IgE < 0.10 kU/L (Class 0)
== END ==
PROVIDERS: PCP Registered Nurse Diabetes Educator; Referring Provider Registered Nurse Diabetes Educator; Visit Provider Registered Nurse Diabetes Educator
DX: Z91.018 Allergy to other foods (principal)
CPT/HCPCS: 86003

== ENCOUNTER → 2023-01-09 08:41 | Outpatient (CLI) | payer OTHER, SELFPAY ==
--- NOTE | 2023-01-09 08:54 | DI.MRI.S_ITS ---
PROCEDURE: MR FOOT RT WO CON INDICATIONS: Stress fracture, right foot TECHNIQUE: Noncontrast sagittal T1 spin echo and T2 fast spin echo with fat saturation, long-axis T1 spin echo and T2 fast spin echo with fat saturation, short-axis T1 spin echo and T2 fast spin echo with fat saturation through the forefoot. COMPARISON: [facility], CR, XR FOOT 3 VIEWS WEIGHT BEARING BILATERAL, 12/15/2022, 13:18. FINDINGS: Image quality: Excellent. Bones and joints: Osseous edema is seen in the 1st metatarsal head and 1st proximal phalangeal base surrounding the metatarsophalangeal joint. There appears to be full-thickness cartilage loss within the 1st metatarsophalangeal joint. Mild osseous edema is also seen within the hallux sesamoids. There is a moderate 1st metatarsophalangeal joint effusion. The remaining visualized osseous structures are within normal limits in signal intensity. The sesamoid bones appear in expected positions. No intraosseous lesions. Soft tissues: Soft tissue edema is seen at the medial forefoot centered at the 1st metatarsophalangeal joint including the medial intrinsic foot musculature. There is mild flexor hallucis longus tenosynovitis. The distal insertions of the peroneus brevis and longus tendons appear intact. The principal Lisfranc ligament appears intact. No soft tissue ganglion cysts or bursal fluid collections. Sagittal images demonstrate no evidence for plantar plate tears. IMPRESSION: 1. Prominent osseous and soft tissue edema surrounding the 1st metatarsophalangeal joint with full-thickness cartilage loss and a small joint effusion. Findings are nonspecific, and differential considerations include primary osteoarthrosis, acute stress reaction, or a nonspecific infectious or inflammatory process including gout, septic arthritis, or an inflammatory arthritis. Recommend correlation with clinical findings and serologies. Joint aspiration could also be considered for further evaluation. 2. Mild flexor hallucis longus tenosynovitis. Approved by: Wyatt Castellanos M.D. on 01/09/2023 at 15:52
[2023-01-09 11:28] LABS: C-Reactive Protein Quant 1.2 mg/dL (<1.0); Uric Acid 4.5 mg/dL (2.5-6.2)
[2023-01-09 11:30] LABS: Rheumatoid Factor < 8.6 IU/mL (<12.0)
[2023-01-11 15:36] LABS: SS A Ro Sjogrens Antibody < 0.2 AI (0.0-0.9); SS B La Sjogrens Antibody < 0.2 AI (0.0-0.9)
[2023-01-13 01:07] LABS: Dilute Russell Viper Venom 43.8 sec (0.0-47.0); Hexagonal Phase Phospholipid 5 sec (0-11); Lupus Reflex Interpretation Comment: (.); PTT- LA Mix 40.6 sec (0.0-40.5)
[2023-01-13 18:09] LABS: ANA Screen, IFA Negative (.)
[2023-01-18 16:08] LABS: HLA B27 Positive (.)
== END ==
PROVIDERS: PCP Registered Nurse Diabetes Educator; Referring Provider Orthopaedic Surgery Foot and Ankle Surgery; Visit Provider Orthopaedic Surgery Foot and Ankle Surgery
DX: M84.374A Stress fracture, right foot, initial encounter for fracture (principal); M25.474 Effusion, right foot; M65.871 Other synovitis and tenosynovitis, right ankle and foot
CPT/HCPCS: 36415; 73718; 81374; 84550; 85598; 85613; 86038; 86140; 86235; 86430; 86617

== ENCOUNTER → 2023-03-06 16:11 | Outpatient (CLI) | payer OTHER, SELFPAY ==
[2023-03-06 18:04] LABS: Add Manual Diff / Slide Review NO; Basophils Absolute Auto 0 /uL (0-100); Basophils Percent Auto 0.1 % (0-2); Eosinophils Absolute Auto 0 /uL (0-450); Hematocrit 35.3 % (36-46); Hemoglobin 11.7 g/dL (12.0-16.0); Lymphocytes Absolute Auto 800 /uL (1100-4500); Lymphocytes Percent Auto 7.7 % (25-40); Mean Corpuscular HGB Conc 33.2 % (30-36); Mean Corpuscular Hemoglobin 27.9 PG (26-34); Mean Corpuscular Volume 83.8 fL (80-100); Monocytes Absolute Auto 100 /uL (0-900); Monocytes Percent Auto 1.1 % (3-14); Neutrophils Absolute Auto 8900 /uL (1500-7000); Neutrophils Percent Auto 91.1 % (50-75); Platelet Count 261 X10^3/uL (150-400); Red Blood Cell Count 4.21 X10^6/uL (4.0-5.2); Red Cell Distribution Width 15.7 % (11.6-14.8); White Blood Cell Count 9.7 X10^3/uL (4.5-11.0)
[2023-03-06 18:28] LABS: Carbon Dioxide 30 mmol/L (22-32); Chloride 101 mmol/L (98-107); HEMOLYSIS < 15 (0-50); Sodium 140 mmol/L (137-145)
[2023-03-06 18:29] LABS: Alanine Aminotransferase 19 IU/L (<35); Albumin 4.2 g/dL (3.5-5.0); Albumin Globulin Ratio 1.4 (1.0-2.8); Alkaline Phosphatase 70 U/L (38-126); Aspartate Aminotransferase 19 IU/L (14-36); BUN Creatinine Ratio 22.4 (6-22); Bilirubin Total 0.2 mg/dL (0.2-1.3); Blood Urea Nitrogen 17 mg/dL (7-17); Calcium 9.3 mg/dL (8.4-10.2); Estimated Glomerular Filt Rate > 60 mL/min (>60); Globulin 3.1 g/dL (1.7-4.1); Glucose 111 mg/dL (80-110); Total Protein 7.3 g/dL (6.3-8.2)
[2023-03-06 18:59] LABS: Vitamin D 25 Hydroxy (D3) 59.1 ng/mL (30.0-100.0)
== END ==
PROVIDERS: PCP Registered Nurse Diabetes Educator; Referring Provider Internal Medicine Rheumatology; Visit Provider Internal Medicine Rheumatology
DX: M06.4 Inflammatory polyarthropathy (principal); E55.9 Vitamin D deficiency, unspecified; Z79.899 Other long term (current) drug therapy
CPT/HCPCS: 36415; 80053; 82306; 85025

== ENCOUNTER → 2023-03-18 08:34 | Outpatient (CLI) | payer OTHER, SELFPAY ==
[2023-03-18 09:12] LABS: Add Manual Diff / Slide Review NO; Basophils Absolute Auto 0 /uL (0-100); Basophils Percent Auto 0.5 % (0-2); Eosinophils Absolute Auto 100 /uL (0-450); Eosinophils Percent Auto 0.9 % (2-4); Hematocrit 36.1 % (36-46); Hemoglobin 11.8 g/dL (12.0-16.0); Lymphocytes Absolute Auto 2500 /uL (1100-4500); Lymphocytes Percent Auto 32.1 % (25-40); Mean Corpuscular HGB Conc 32.6 % (30-36); Mean Corpuscular Hemoglobin 27.6 PG (26-34); Mean Corpuscular Volume 84.5 fL (80-100); Monocytes Absolute Auto 500 /uL (0-900); Monocytes Percent Auto 6.3 % (3-14); Neutrophils Absolute Auto 4700 /uL (1500-7000); Neutrophils Percent Auto 60.2 % (50-75); Platelet Count 256 X10^3/uL (150-400); Red Blood Cell Count 4.27 X10^6/uL (4.0-5.2); Red Cell Distribution Width 16.4 % (11.6-14.8); White Blood Cell Count 7.7 X10^3/uL (4.5-11.0)
[2023-03-18 09:23] LABS: Cholesterol 210 mg/dL (140-199); HDL Cholesterol 72 mg/dL (40-60); LDL Cholesterol Calculated 119 mg/dL (<100); Triglycerides 93 mg/dL (35-150)
[2023-03-18 09:24] LABS: Alanine Aminotransferase 20 IU/L (<35); Albumin 4.2 g/dL (3.5-5.0); Albumin Globulin Ratio 1.4 (1.0-2.8); Alkaline Phosphatase 60 U/L (38-126); Aspartate Aminotransferase 22 IU/L (14-36); BUN Creatinine Ratio 23.6 (6-22); Bilirubin Total 0.4 mg/dL (0.2-1.3); Blood Urea Nitrogen 25 mg/dL (7-17); Carbon Dioxide 33 mmol/L (22-32); Chloride 102 mmol/L (98-107); Estimated Glomerular Filt Rate 59 mL/min (>60); Globulin 3.1 g/dL (1.7-4.1); Glucose 85 mg/dL (80-110); HEMOLYSIS < 15 (0-50); Potassium 3.5 mmol/L (3.4-5.1); Sodium 139 mmol/L (137-145); Total Protein 7.3 g/dL (6.3-8.2)
== END ==
PROVIDERS: PCP Registered Nurse Diabetes Educator; Referring Provider Internal Medicine Rheumatology; Visit Provider Internal Medicine Rheumatology
DX: Z00.00 Encounter for general adult medical examination without abnormal findings (principal)
CPT/HCPCS: 36415; 80053; 80061; 85025

== ENCOUNTER → 2023-04-06 11:23 | Outpatient (CLI) | payer OTHER, SELFPAY ==
[2023-04-06 12:52] LABS: Add Manual Diff / Slide Review NO; Basophils Absolute Auto 0 /uL (0-100); Basophils Percent Auto 0.3 % (0-2); Eosinophils Absolute Auto 200 /uL (0-450); Eosinophils Percent Auto 2.6 % (2-4); Hematocrit 33.3 % (36-46); Hemoglobin 11.2 g/dL (12.0-16.0); Lymphocytes Absolute Auto 1700 /uL (1100-4500); Lymphocytes Percent Auto 19.3 % (25-40); Mean Corpuscular HGB Conc 33.5 % (30-36); Mean Corpuscular Hemoglobin 28.5 PG (26-34); Mean Corpuscular Volume 84.9 fL (80-100); Monocytes Absolute Auto 600 /uL (0-900); Monocytes Percent Auto 7.2 % (3-14); Neutrophils Absolute Auto 6400 /uL (1500-7000); Neutrophils Percent Auto 70.6 % (50-75); Platelet Count 268 X10^3/uL (150-400); Red Blood Cell Count 3.92 X10^6/uL (4.0-5.2); Red Cell Distribution Width 18.8 % (11.6-14.8)
[2023-04-06 13:17] LABS: Alanine Aminotransferase 36 IU/L (<35); Albumin 4.1 g/dL (3.5-5.0); Albumin Globulin Ratio 1.4 (1.0-2.8); Alkaline Phosphatase 72 U/L (38-126); Aspartate Aminotransferase 28 IU/L (14-36); Bilirubin Total 0.3 mg/dL (0.2-1.3); Blood Urea Nitrogen 27 mg/dL (7-17); Carbon Dioxide 33 mmol/L (22-32); Chloride 103 mmol/L (98-107); Estimated Glomerular Filt Rate > 60 mL/min (>60); Globulin 2.9 g/dL (1.7-4.1); Glucose 76 mg/dL (80-110); HEMOLYSIS < 15 (0-50); Potassium 3.6 mmol/L (3.4-5.1); Sodium 142 mmol/L (137-145)
== END ==
PROVIDERS: PCP Registered Nurse Diabetes Educator; Referring Provider Internal Medicine Rheumatology; Visit Provider Internal Medicine Rheumatology
DX: M06.4 Inflammatory polyarthropathy (principal); Z79.899 Other long term (current) drug therapy
CPT/HCPCS: 36415; 80053; 85025

== ENCOUNTER → 2023-07-03 15:48 | Outpatient (CLI) | payer MEDICARE, OTHER, SELFPAY ==
[2023-07-03 16:42] LABS: Hematocrit 35.6 % (36-46); Hemoglobin 11.7 g/dL (12.0-16.0); Mean Corpuscular HGB Conc 32.9 % (30-36); Mean Corpuscular Hemoglobin 28.5 PG (26-34); Mean Corpuscular Volume 86.6 fL (80-100); Platelet Count 223 X10^3/uL (150-400); Red Blood Cell Count 4.11 X10^6/uL (4.0-5.2); Red Cell Distribution Width 18.3 % (11.6-14.8); White Blood Cell Count 5.6 X10^3/uL (4.5-11.0)
[2023-07-03 17:07] LABS: Erythrocyte Sedimentation Rate 11 MM/HR (0-20)
[2023-07-03 17:18] LABS: Alanine Aminotransferase 25 IU/L (<35); C-Reactive Protein Quant < 0.5 mg/dL (<1.0); Estimated Glomerular Filt Rate > 60 mL/min (>60)
== END ==
PROVIDERS: PCP Registered Nurse Diabetes Educator; Referring Provider Internal Medicine Rheumatology; Visit Provider Internal Medicine Rheumatology
DX: M06.4 Inflammatory polyarthropathy (principal)
CPT/HCPCS: 36415; 82565; 84460; 85027; 85651; 86140

== ENCOUNTER → 2023-10-24 15:56 | Outpatient (CLI) | payer MEDICARE, OTHER, SELFPAY ==
[2023-10-24 18:11] LABS: Add Manual Diff / Slide Review NO; Basophils Absolute Auto 100 /uL (0-100); Basophils Percent Auto 1.4 % (0-2); Eosinophils Absolute Auto 200 /uL (0-450); Eosinophils Percent Auto 3.3 % (2-4); Hematocrit 35.3 % (36-46); Hemoglobin 11.8 g/dL (12.0-16.0); Lymphocytes Absolute Auto 1500 /uL (1100-4500); Lymphocytes Percent Auto 30.3 % (25-40); Mean Corpuscular HGB Conc 33.5 % (30-36); Mean Corpuscular Hemoglobin 29.7 PG (26-34); Mean Corpuscular Volume 88.8 fL (80-100); Monocytes Absolute Auto 300 /uL (0-900); Monocytes Percent Auto 5.4 % (3-14); Neutrophils Absolute Auto 3000 /uL (1500-7000); Neutrophils Percent Auto 59.6 % (50-75); Platelet Count 175 X10^3/uL (150-400); Red Blood Cell Count 3.97 X10^6/uL (4.0-5.2); Red Cell Distribution Width 16.4 % (11.6-14.8)
[2023-10-24 18:40] LABS: Alanine Aminotransferase 21 IU/L (<35); Aspartate Aminotransferase 26 IU/L (14-36); C-Reactive Protein Quant < 0.5 mg/dL (<1.0); Estimated Glomerular Filt Rate > 60 mL/min (>60)
[2023-10-24 18:41] LABS: Erythrocyte Sedimentation Rate 10 MM/HR (0-20)
== END ==
PROVIDERS: PCP Registered Nurse Diabetes Educator; Referring Provider Internal Medicine Rheumatology; Visit Provider Internal Medicine Rheumatology
DX: M06.4 Inflammatory polyarthropathy (principal)
CPT/HCPCS: 36415; 82565; 84450; 84460; 85025; 85651; 86140

== ENCOUNTER → 2023-11-01 11:29 | Outpatient (CLI) | payer MEDICARE, OTHER, SELFPAY ==
[2023-11-01 12:41] LABS: HEMOLYSIS < 15 (0-50); Iron 44 ug/dL (37-170)
[2023-11-01 12:52] LABS: Percent Iron Saturation 17 % (15-50); Total Iron Binding Capacity 259 ug/dL (265-497); Transferrin 217 mg/dL (206-381)
[2023-11-01 13:17] LABS: Ferritin 37 ng/mL (11-264)
[2023-11-01 13:32] LABS: Vitamin B12 Reflex MMA if <400 808 pg/mL (239-931)
== END ==
PROVIDERS: PCP Registered Nurse Diabetes Educator; Referring Provider Physician Assistant; Visit Provider Physician Assistant
DX: D64.9 Anemia, unspecified (principal)
CPT/HCPCS: 36415; 82607; 82728; 83540; 83550

== ENCOUNTER → 2023-11-07 10:25 | Outpatient (CLI) | payer MEDICARE, OTHER, SELFPAY ==
--- NOTE | 2023-11-07 10:26 | DI.RAD.S_ITS ---
Bone Density Report Name: CLINT JAMES Age: 63 Sex: Female Ethnicity: White Date of : 1960 Indication: osteopenia; Referring Provider: CIRO HINES Study: Bone densitometry was performed. Exam Date: November 07, 2023 Accession number: [id number] Bone Density: Region BMD T-score Z-score Classification AP Spine(L1-L4) 0.581 -4.2 -2.5 Osteoporosis Femoral Neck (Left) 0.549 -2.7 -1.2 Osteoporosis Total Hip (Left) 0.586 -2.9 -1.7 Osteoporosis Femoral Neck (Right) 0.566 -2.6 -1.0 Osteoporosis Total Hip (Right) 0.590 -2.9 -1.6 Osteoporosis Total Hip Mean 0.588 -2.9 -1.7 Osteoporosis World Health Organization criteria for BMD impression classify patients as: Normal (T-score at or above -1.0), Osteopenia (T-score between -1.0 and -2.5), or Osteoporosis (T-score at or below -2.5). 10-year Fracture Risk: FRAX not reported because: Some T-score for Spine Total or Hip Total or Femoral Neck at or below -2.5 Previous Exams: -- Region Exam Age BMD T-score BMD Change BMD Change Date g/cm2 vs Baseline vs Previous -- AP Spine (L1-L4) 11/07/2023 63 0.581 -4.2 -0.298 (-33.9%)# -0.298 (-33.9%)# 08/26/2009 49 0.878 -1.5 Total Hip(Left) 11/07/2023 63 0.586 -2.9 -0.193 (-24.8%)# -0.193 (-24.8%)# 08/26/2009 49 0.780 -1.3 Total Hip(Right) 11/07/2023 63 0.590 -2.9 -0.192 (-24.6%)# -0.192 (-24.6%)# 08/26/2009 49 0.782 -1.3 -- *Denotes significance at 95% confidence level, LSC for AP Spine = 0.022 g/cm2, LSC for Total Hip = 0.027 g/cm2 # Denotes dissimilar scan types or analysis methods Impression: The patient has osteoporosis, based on the Total Spine T-score. No significant bone loss was observed. Discussion: HIGH RISK OF FRACTURE. BONE DENSITY IS UNDESIRABLY LOW AT ONE OR MORE SKELETAL SITES, CONSISTENT WITH OSTEOPOROSIS. ALSO, BONE DENSITY IS LOWER THAN EXPECTED FOR AGE AND SEX AT ONE OR MORE SKELETAL SITES; RECOMMEND A DILIGENT SEARCH FOR SECONDARY CAUSES OF BONE LOSS. This patient's lowest T-score meets the World Health Organization's (WHO) criteria for osteoporosis at one or more sites (T-score -2.5 or below). In untreated patients, the risk of osteoporotic fracture increases approximately two-fold for each 1.0 SD decrease in T-score. Low bone density is not the only risk factor for fracture; also consider factors such as patient's age, frailty or poor health, risk of falling, risk of injury, previous osteoporotic fracture, family history of osteoporosis, cigarette smoking, low body weight, etc. Not everyone with low bone mineral density has osteoporosis; osteomalacia and other metabolic bone disorders should also be considered. Patients who have osteoporosis should be evaluated for specific diseases and conditions (secondary causes) that may cause or contribute to bone loss. The [place] [employer]ocrinologists (AACE) and National Osteoporosis Foundation (NOF) recommend pharmacologic intervention for all postmenopausal women whose T-score is in this range. Also, this patient's bone mineral density is below the range considered normal for healthy age-, sex-, and race-matched controls at least one site (Z-score -2.0 or below). This warrants careful evaluation for diseases and conditions that may contribute to accelerated bone loss. The patient should follow a healthful lifestyle (good nutrition with adequate calcium and vitamin D, and appropriate weight-bearing exercise). Follow-Up: Consider a repeat BMD and Vertebral Fracture Assessment (VFA) exam in 2 years or sooner if medically necessary, to reassess this patient's status. Reported by: ROGER TILLMAN M.D. on 11/07/2023 11:17:00 AM.
== END ==
PROVIDERS: PCP Registered Nurse Diabetes Educator; Referring Provider Physician Assistant; Visit Provider Physician Assistant
DX: Z78.0 Asymptomatic menopausal state (principal); M81.0 Age-related osteoporosis without current pathological fracture
CPT/HCPCS: 77080

== ENCOUNTER → 2023-12-13 14:54 | Outpatient (CLI) | payer MEDICARE, OTHER, SELFPAY ==
--- NOTE | 2023-12-13 14:55 | DI.MG.S_ITS ---
BILATERAL DIGITAL SCREENING MAMMOGRAM 3D/2D WITH CAD: 12/13/2023 CLINICAL: Routine screening. Comparison is made to exams dated: 11/14/2022 mammogram, 09/07/2020 mammogram, and 09/10/2019 mammogram - [facility]. Both breasts are heterogeneously dense, which may obscure small masses (category c / 51-75% glandular tissue). Current study was also evaluated with a Computer Aided Detection (CAD) system. No significant masses, calcifications, or other findings are seen in either breast. There has been no significant interval change. IMPRESSION: NEGATIVE There is no mammographic evidence of malignancy. A 1 year screening mammogram is recommended. Based on the Tyrer Cuzick model (a risk assessment model) the patient's lifetime risk is 10.6% and her 10 year risk is 5.1%. According to the ACR, ACS, and NCCN guidelines, an annual breast MRI exam along with mammogram is recommended if the patient's lifetime risk is 20% or greater. This exam was interpreted at Station ID: [id number]. NOTE: For mammograms, a report in lay terms will be sent to the patient. Approximately 15% of breast malignancies will not be visualized mammographically. In the management of a palpable breast mass, a negative mammogram must not discourage biopsy of a clinically suspicious lesion. Electronically Signed By: Fahad sabillon/dannielle:12/14/2023 08:21:44 letter sent: Normal Exam ACR BI-RADS Category 1: Negative 3341F
== END ==
LOC: MAMMO 14:55
PROVIDERS: PCP Registered Nurse Diabetes Educator; Referring Provider Registered Nurse Diabetes Educator; Visit Provider Registered Nurse Diabetes Educator
DX: Z12.31 Encounter for screening mammogram for malignant neoplasm of breast (principal); R92.333 Mammographic heterogeneous density, bilateral breasts
CPT/HCPCS: 77063; 77067

== ENCOUNTER → 2024-02-16 11:17 | Outpatient (CLI) | payer MEDICARE, OTHER, SELFPAY ==
[2024-02-16 12:14] LABS: Hematocrit 36.4 % (36-46); Hemoglobin 12.3 g/dL (12.0-16.0); Mean Corpuscular HGB Conc 33.8 % (30-36); Mean Corpuscular Hemoglobin 30.4 PG (26-34); Mean Corpuscular Volume 89.9 fL (80-100); Platelet Count 206 X10^3/uL (150-400); Red Blood Cell Count 4.05 X10^6/uL (4.0-5.2); Red Cell Distribution Width 16.2 % (11.6-14.8); White Blood Cell Count 4.7 X10^3/uL (4.5-11.0)
[2024-02-16 12:47] LABS: Erythrocyte Sedimentation Rate 10 MM/HR (0-20)
[2024-02-16 13:04] LABS: Alanine Aminotransferase 24 IU/L (<35); Albumin 4.3 g/dL (3.5-5.0); Albumin Globulin Ratio 1.4 (1.0-2.8); Alkaline Phosphatase 75 U/L (38-126); Aspartate Aminotransferase 27 IU/L (14-36); BUN Creatinine Ratio 26.4 (6-22); Bilirubin Total 0.5 mg/dL (0.2-1.3); Blood Urea Nitrogen 24 mg/dL (7-17); C-Reactive Protein Quant < 0.5 mg/dL (<1.0); Calcium 9.3 mg/dL (8.4-10.2); Carbon Dioxide 31 mmol/L (22-32); Chloride 105 mmol/L (98-107); Cholesterol 202 mg/dL (140-199); Estimated Glomerular Filt Rate > 60 mL/min (>60); Glucose 83 mg/dL (80-110); HDL Cholesterol 66 mg/dL (40-60); HEMOLYSIS < 15 (0-50); LDL Cholesterol Calculated 122 mg/dL (<100); Potassium 3.9 mmol/L (3.4-5.1); Sodium 139 mmol/L (137-145); Total Protein 7.3 g/dL (6.3-8.2); Triglycerides 70 mg/dL (35-150)
== END ==
PROVIDERS: PCP Registered Nurse Diabetes Educator; Referring Provider Internal Medicine Rheumatology; Visit Provider Internal Medicine Rheumatology
DX: M06.4 Inflammatory polyarthropathy (principal); Z00.00 Encounter for general adult medical examination without abnormal findings
CPT/HCPCS: 36415; 80053; 80061; 85027; 85651; 86140

== ENCOUNTER 2024-03-19 11:39 | Day surgery (SDC) | payer MEDICARE, OTHER, SELFPAY ==
--- NOTE | 2024-03-19 | PATH_ITS ---
[facility] Accession Number: [id number] No. of containers..01 Tissue . 01 Material submitted: . colon - ASCENDING POLYP . 01 Diagnosis: A. ASCENDING COLON POLYP, POLYPECTOMY: Colonic mucosa with lymphoid aggregate. MRV 03/26/2024 1305 Local . 01 Electronically signed: . Larisa Isabel MD, Pathologist NPI- [id number] . 01 Gross description: . ASCENDING POLYP: Received in formalin is 1 fragment(s) of cadena, soft tissue measuring 0.3 x 0.2 x 0.2 cm submitted entirely in 1 cassette(s) /JIMMY 03/20/2024 2254 Local . 01 Microscopic: . A. Deeper H/E levels have been examined. . 01 Pathologist provided ICD-10: Z12.11 . 01 CPT . 759344 Specimen Comment: A courtesy copy of this report has been sent to [phone] Performed at: 01 [facility] [address] [place] [address] Suite [facility], [place], [place] [id number] MD Jordan Beltre MD Phone: [phone]
[2024-03-19 12:09] VITALS: BP 124/73; PULSE 68; RESP 18; TEMP 36.6; O2SAT 100
[2024-03-19] MEDS: LACTATED RINGERS 1,000 ML 42 ML IV (12:12)
--- NOTE | 2024-03-19 12:57 | PM.HP.1 ---
History of Present Illness History of Present Illness Date Patient Seen: 03/19/24 Time Patient Seen: 12:57 Chief complaint: Colonoscopy Narrative: 63-year-old woman here for screening colonoscopy. Last colonoscopy greater than 5 years ago she has a personal history of colonic polyps. No abdominal concerns today. No family history of intestinal malignancy. [facility] Medical History Atrophic vaginitis Upper back pain Surgical History History of oral surgery Status post laparoscopy Family History Brother Age: 68 Sleep apnea Child Age: 27 Multiple food allergies Father Age: 91 Myeloma Bladder cancer Cerebral hemorrhage Osteoporosis Grandfather Stroke Grandmother Pacemaker Mother Age: 85 Congestive heart failure Stroke Social History Smoking Status: Never smoker alcohol intake: current Meds Home Medications and Allergies Home Medications Medication Instructions Recorded Confirmed Type Disabled Parking Permit #1 ea 12/27/22 12/13/23 Rx Calcium PO 11/01/23 02/06/24 History Lipoic acid PO 11/01/23 02/06/24 History adalimumab 40 mg/0.8 mL 40 mg SUBCUT Q2W 11/01/23 03/19/24 History subcutaneous syringe kit (Humira) ascorbic acid (vitamin C) 1,000 mg 1 g PO DAILY 11/01/23 02/06/24 History capsule multivitamin with minerals 1 tab PO DAILY General health 11/01/23 02/06/24 History maintenance insulin syringe-needle U-100 1 mL #10 ea 12/13/23 12/13/23 History 30 gauge x 1/2 (BD Insulin Syringe Ultra-Fine) folic acid 1 mg tablet 2 mg PO DAILY Limit MTX Effects 02/06/24 02/06/24 History methotrexate (PF) 20 mg/0.4 mL 20 mg SUBCUT QWEEK 02/06/24 03/19/24 History subcutaneous auto-injector Allergies Allergy/AdvReac Type Severity Reaction Status Date / Time erythromycin base AdvReac Mild VOMITING Verified 03/19/24 11:59 [ERYTHROMYCIN BASE] Exam Vital Signs (past 8 hours): - 03/19/24 12:09 Temperature 97.8 F Pulse Rate 68 Respiratory Rate 18 Blood Pressure 124/73 Pulse Oximetry 100 Oxygen Delivery Method Room Air Oxygen Delivery Method Room Air Narrative Exam Narrative: General adult woman alert oriented no acute distress Chest nonlabored respiration Extremities warm well perfused Assessment & Plan Assessment & Plan narrative: The patient requires colorectal screening and colonoscopy is recommended. Technical details were discussed. Risks, benefits, alternatives explained. Risks including but not limited to myocardial infarction, aspiration, bleeding, pain, missed lesion, incomplete examination, need for further radiographic studies, intestinal injury, and need for major abdominal surgery were discussed. All questions were answered to their satisfaction, and they are in agreement with this plan.
[2024-03-19 13:28] VITALS: BP 90/34; PULSE 60; RESP 14; TEMP 36.5; O2SAT 96
--- NOTE | 2024-03-19 13:32 | P.OP.COLON_ITS ---
Operative Date/Time/Diagnoses Date of procedure: 03/19/24 Time of procedure: 13:32 Pre-op diagnosis: Personal history of colonic polyps Procedure & Clinicians Study performed: Colonoscopy and polypectomy Same procedure as scheduled: Yes Indications: Colorectal screening Surgeon: Jose Francisco Ordaz Procedure Notes Procedure in detail: The history and physical was performed/updated and the patient is ASA class is 2. The procedure was discussed in detail with the patient. Potential risks complications including infection, bleeding, missed diagnosis, perforation, need for surgery, and were explained. Their questions were answered and informed consent was obtained. Patient was brought to the procedure room and placed standard monitoring equipment. The patient's vital signs were monitored continuously throughout the entire procedure. Prior to starting time-out was performed. The patient was placed in the left lateral recumbent position. Procedural sedation was administered by anesthesia. Examination began with a thorough inspection of the perianal area there was no evidence of fissures, fistulae, external hemorrhoids or cutaneous malignancy. The colonoscopy scope was then placed into the anal canal and was advanced to the cecum, which was identified by the ileocecal valve, the appendiceal orifice and the confluence of the taenia. The scope was then slowly withdrawn examining colon thoroughly in all directions, irrigating it of any residual stool. The scope was retroflexed within the rectum The patient tolerated the procedure well. They will be discharged once criteria are met. The prep was of good/excellent quality. The withdrawl time was 7 minutes. FINDINGS * Ascending colon-3 mm polyp removed with biopsy forceps * Internal hemorrhoids Specimen(s): other (Ascending colon polyp) Impression: Colonic polyp x1 Post-procedure Plan for aftercare: Follow-up is dependent on pathology findings.
[2024-03-19 13:34] VITALS: BP 88/41; PULSE 58; RESP 16; O2SAT 97
[2024-03-19 13:39] VITALS: BP 92/48; PULSE 53; RESP 16; TEMP 36.3; O2SAT 97
[2024-03-19 13:45] VITALS: BP 107/52; PULSE 58; RESP 18; O2SAT 97
[2024-03-19 13:49] VITALS: BP 116/50; PULSE 57; RESP 18; O2SAT 100
== END 2024-03-19 14:10 | disposition home or self-care (01) ==
PROVIDERS: PCP Registered Nurse Diabetes Educator; Referring Provider Surgery; Visit Provider Surgery
PROC: 0DJD8ZZ Inspection of Lower Intestinal Tract, Via Natural or Artificial Opening Endoscopic (ICD-10-PCS; CPT 45378; principal; 2024-03-19 12:45)
DX: Z12.11 Encounter for screening for malignant neoplasm of colon (principal); Z86.010 Personal history of colon polyps; K64.8 Other hemorrhoids; K63.5 Polyp of colon
CPT/HCPCS: 45380; J2704

== ENCOUNTER → 2025-04-15 13:19 | Outpatient (CLI) | payer MEDICARE, OTHER, SELFPAY ==
--- NOTE | 2025-04-15 13:36 | DI.MG.S_ITS ---
MM screening mammo BI: 04/15/2025. BI-RADS: 1 CLINICAL: 64-year old female for bilateral screening mammogram. Tyrer-Cuzick lifetime risk of 9.4%. No personal or first-degree family history of breast cancer. Current reported family history of breast cancer: paternal aunt. PRIOR EXAMS 12/13/2023, 11/14/2022, 09/07/2020, 09/10/2019, 10/19/2016. MAMMOGRAPHY TECHNIQUE: 2D and 3D (tomosynthesis) digital mammographic views obtained, with additional images as needed for full coverage. Current study was also evaluated with a Computer Aided Detection (CAD) system. DENSITY C. The breasts are heterogeneously dense, which may obscure small masses. MAMMOGRAPHY FINDINGS Bilateral: No suspicious mass, asymmetry, microcalcification, or other abnormality seen. IMPRESSION: * No evidence of malignancy. RECOMMENDATIONS Bilateral * Annual screening mammography. OVERALL ASSESSMENT CATEGORY BI-RADS-1: Negative. The [employer] recommends annual screening mammography beginning at age 40 for women with average risk of breast cancer. ELECTRONICALLY SIGNED: Mendel Lancaster M.D. on 04/16/2025 at 09:56:06 AM PT Interpreting Station ID: [id number]
== END ==
PROVIDERS: PCP Registered Nurse Diabetes Educator; Referring Provider Registered Nurse Diabetes Educator; Visit Provider Registered Nurse Diabetes Educator
DX: Z12.31 Encounter for screening mammogram for malignant neoplasm of breast (principal); Z80.3 Family history of malignant neoplasm of breast
CPT/HCPCS: 77063; 77067